=== PATIENT | female | born 1990 | race Caucasian/White ===

== ENCOUNTER 2018-08-12 23:03 | Emergency (ER) | payer BC, OTHER ==
[~2018-08-12] VITALS: Ht 165.1 cm; Wt 111.0 kg
[2018-08-12 23:57] LABS: CULTURE INDICATED? YES; MICROSCOPIC INDICATED
[2018-08-13] LABS: BASOPHILS # (AUTO) 0.03 x10^3/uL (0-0.1); BASOPHILS % (AUTO) 0 % (0-1); EOSINOPHILS # (AUTO) 0.06 x10^3/uL (0-0.4); EOSINOPHILS % (AUTO) 1 % (1-7); LYMPHOCYTES # (AUTO) 2.64 x10^3/uL (1-3.4); LYMPHOCYTES % (AUTO) 24 % (22-44); MD NO; MEAN CORPUSCULAR HEMOGLOBIN 31.5 pg (27.0-34.8); MEAN CORPUSCULAR HGB CONC 34.2 g/dL (32.4-35.8); MEAN CORPUSCULAR VOLUME 91.9 fL (80-100); MEAN PLATELET VOLUME 8.9 fL (7.4-10.4); MONOCYTES # (AUTO) 0.54 x10^3/uL (0.2-0.8); MONOCYTES % (AUTO) 5 % (2-9); NEUTROPHILS % (AUTO) 71 % (42-75); PLATELET COUNT 289 x10^3/uL (130-400); RED BLOOD COUNT 4.39 x10^6/uL (3.82-5.3)
[2018-08-13 00:13] LABS: ALBUMIN 3.6 g/dL (3.4-5.0); ANION GAP 8 mmol/L (5-15); CALCIUM 8.9 mg/dL (8.5-10.1); CHLORIDE 109 mmol/L (98-107)
--- NOTE | 2018-08-13 00:31 | NUR ---
UPDATED PT ON POC. PT CALLING HER BOYFRIEND AT THIS TIME.
--- NOTE | 2018-08-13 00:50 | NUR ---
PT TO US VIA [facility].
[2018-08-13 01:22] VITALS: BP 147/78
--- NOTE | 2018-08-13 02:05 | NUR ---
ERP WAS IN FOR RE-EVAL. D/C INSTRUCTIONS & F/U APPT RV'WD WITH PT, SHE VERBALIZES UNDERSTANDING. PT AMBULATED OUT OF ED WITHOUT DIFFICULTY, BOYFRIEND TO COME PICK HER UP.
== END 2018-08-13 02:07 | disposition home or self-care (01) ==
LOC: ED 08-13 00:40
DX: O20.0 Threatened abortion (principal); Z3A.01 Less than 8 weeks gestation of pregnancy
CPT/HCPCS: 36415; 76801; 80048; 81001; 82040; 84702; 84703; 85025; 87086; 99284

== ENCOUNTER 2020-05-21 12:52 | Emergency (ER) | payer OTHER ==
[~2020-05-21] VITALS: Ht 165.1 cm; Wt 99.6 kg
[2020-05-21 14:09] LABS: BASOPHILS % (AUTO) 0 % (0-1); EOSINOPHILS % (AUTO) 2 % (1-7); LYMPHOCYTES % (AUTO) 30 % (22-44); MEAN CORPUSCULAR HEMOGLOBIN 31.5 pg (27.0-34.8); MEAN CORPUSCULAR HGB CONC 34.5 g/dL (32.4-35.8); MEAN PLATELET VOLUME 9.1 fL (7.4-10.4); MONOCYTES % (AUTO) 7 % (2-9); NEUTROPHILS % (AUTO) 61 % (42-75); PLATELET COUNT 279 x10^3/uL (130-400); RED BLOOD COUNT 4.64 x10^6/uL (3.82-5.3); RED CELL DISTRIBUTION WIDTH 12.7 % (9.6-15.2)
[2020-05-21 14:10] LABS: MD NO
--- NOTE | 2020-05-21 14:14 | NUR ---
ON SITE SOIL EVALUATOR: PT AMBULATORY TO ROOM FROM LOBBY
--- NOTE | 2020-05-21 14:23 | NUR ---
"MY BF AND I HAVE HAD DIFFERENT SEX PARTNERS. WE WANT STD CHECKS. IM HAVING ABD PAIN AND A FOUL ODOR FROM MY VAGINA" UA COLLECTED IN TRIAGE
[2020-05-21 14:25] LABS: MICROSCOPIC INDICATED
--- NOTE | 2020-05-21 14:54 | NUR ---
ERP AT BEDSIDE FOR PELVIC EXAM-SWABS OBTAINED AND SENT TO LAB
--- NOTE | 2020-05-21 14:56 | NUR ---
REPORT TO ALTAF HERNADEZ
--- NOTE | 2020-05-21 14:59 | NUR ---
Report from MARICARMEN Bowen. Assumed care.
[2020-05-21] MEDS ORDERED: AZITHROMYCIN 500 MG TABLET PO ONE (15:00)
[2020-05-21] MEDS ORDERED: CEFTRIAXONE 250 MG IM ONE (15:00)
[2020-05-21] MEDS ORDERED: CEFTRIAXONE 250 MG ONE (15:18)
[2020-05-21 15:19] LABS: CLUE CELLS PRESENT (NONE SEEN); WET PREP WBCS MODERATE (FEW)
[2020-05-21] MEDS ORDERED: AZITHROMYCIN 250 MG TABLET ONE (15:19)
--- NOTE | 2020-05-21 15:31 | NUR ---
Rocephin and zithromax adminstered per eMAR
[2020-05-21 15:54] VITALS: BP 120/87
--- NOTE | 2020-05-21 16:22 | NUR ---
US at bedside
--- NOTE | 2020-05-21 16:26 | NUR ---
This RN chaperoning US.
[2020-05-22] MEDS ORDERED: METR500T PO (11:20)
== END 2020-05-21 17:05 | disposition home or self-care (01) ==
LOC: ED 14:44
DX: N76.0 Acute vaginitis (principal); R10.2 Pelvic and perineal pain; E66.01 Morbid (severe) obesity due to excess calories; Z68.36 Body mass index [BMI] 36.0-36.9, adult
CPT/HCPCS: 36415; 76830; 81001; 84703; 85025; 87086; 87210; 87491; 87591; 87808; 96372; 99284; J0696

== ENCOUNTER → 2020-05-22 | Outpatient (CLI) | payer OTHER ==
[~2020-05-22] MED LIST: METR500T PO
== END | disposition home or self-care (01) ==
LOC: STAR 10:43
PROVIDERS: ATTEND Obstetrics & Gynecology Female Pelvic Medicine and Reconstructive Surgery
DX: Z20.822 Contact with and (suspected) exposure to COVID-19 (principal); Z01.419 Encounter for gynecological examination (general) (routine) without abnormal findings
CPT/HCPCS: 87635

== ENCOUNTER 2020-12-20 15:50 | Outpatient (CLI) | payer MEDICAID ==
[2020-12-20 16:51] LABS: BASOPHILS % (AUTO) 0 % (0-1); EOSINOPHILS % (AUTO) 2 % (1-7); LYMPHOCYTES % (AUTO) 39 % (22-44); MEAN CORPUSCULAR HEMOGLOBIN 31.9 pg (27.0-34.8); MEAN CORPUSCULAR HGB CONC 34.4 g/dL (32.4-35.8); MEAN PLATELET VOLUME 8.6 fL (7.4-10.4); MONOCYTES % (AUTO) 7 % (2-9); NEUTROPHILS % (AUTO) 52 % (42-75); PLATELET COUNT 312 x10^3/uL (130-400); RED BLOOD COUNT 4.48 x10^6/uL (3.82-5.3); RED CELL DISTRIBUTION WIDTH 12.8 % (9.6-15.2)
[2020-12-20 16:59] LABS: ALANINE AMINOTRANSFERASE 25 U/L (12-78); ALBUMIN 3.6 g/dL (3.4-5.0); ANION GAP 7 mmol/L (5-15); CALCIUM 8.9 mg/dL (8.5-10.1); CHLORIDE 107 mmol/L (98-107); CREATININE 0.76 mg/dL (0.55-1.02)
[2020-12-20 17:00] LABS: INTERNATIONAL NORMALIZED RATIO 0.93 (0.93-1.1)
[2020-12-20 17:02] LABS: ALKALINE PHOSPHATASE 60 U/L (45-117); BILIRUBIN,TOTAL 0.5 mg/dL (0.2-1.0); TOTAL PROTEIN 7.6 g/dL (6.4-8.2)
== END 2020-12-20 23:59 | disposition home or self-care (01) ==
LOC: STAR 15:50
PROVIDERS: ATTEND Obstetrics & Gynecology
DX: Z01.812 Encounter for preprocedural laboratory examination (principal); Z20.822 Contact with and (suspected) exposure to COVID-19; N87.1 Moderate cervical dysplasia; R87.810 Cervical high risk human papillomavirus (HPV) DNA test positive
CPT/HCPCS: 36415; 80053; 85025; 85610; 85730; 87635

== ENCOUNTER 2020-12-24 11:55 | Observation (INO) | payer MEDICAID ==
[~2020-12-24] VITALS: Ht 165.1 cm; Wt 96.2 kg
[2020-12-24] MEDS ORDERED: CHLORHEXIDINE 15 ML UDC ONE (12:29)
[2020-12-24] MEDS ORDERED: LACTATED RINGERS 1,000 ML IV SCH (12:30)
[2020-12-24] MEDS ORDERED: CHLORHEXIDINE 15 ML UDC PO ONE (12:30)
[2020-12-24] MEDS ORDERED: CEFOTETAN PMX 2GM/50ML 50 ML IVPB ONE (12:30)
[2020-12-24 12:37] LABS: HCG UR SG 1.013 (1.003-1.030)
[2020-12-24] MEDS ORDERED: EPINEPHRINE 1 MG/ML, 1ML ONE (14:28)
[2020-12-24] MEDS ORDERED: HEPARIN 1,000 UNITS/ML, 10ML ONE (14:28)
[2020-12-24] MEDS ORDERED: BUPIVACAINE/PF 0.25% ONE (14:28)
[2020-12-24] MEDS ORDERED: FENTANYL PF 250 MCG/5ML ONE ×2 (14:44→15:38)
[2020-12-24] MEDS ORDERED: MIDAZOLAM 1 MG/ML, 2ML ONE (14:44)
[2020-12-24] MEDS ORDERED: LABETALOL 5MG/ML, 20ML IV PRN (16:00)
[2020-12-24] MEDS ORDERED: LORazepam 2 MG/ML, 1ML IVPush PRN (16:00)
[2020-12-24] MEDS ORDERED: OXYcodone 5 MG/5 ML ORAL.SOL UDC PO PRN (16:00)
[2020-12-24] MEDS ORDERED: ACETAMINOPHEN 325 MG TABLET PO PRN (16:00)
[2020-12-24] MEDS ORDERED: PROMETHAZINE 25 MG SUPP PR PRN (16:00)
[2020-12-24] MEDS ORDERED: HALOPERIDOL 5 MG/ML IV PRN (16:00)
[2020-12-24] MEDS ORDERED: HYDROmorphone 1 MG/ML, 1ML INJ IVPush PRN (16:00)
[2020-12-24] MEDS ORDERED: ONDANSETRON 2MG/ML, 2ML IVPush PRN ×2 (16:00→22:00)
[2020-12-24] MEDS ORDERED: MEPERIDINE/PF 25MG/0.5ML IVPush PRN (16:00)
[2020-12-24] MEDS ORDERED: hydrALAzine 20 MG/ML, 1ML IV PRN (16:00)
[2020-12-24] MEDS ORDERED: FENTANYL PF 100 MCG/2ML IV PRN (16:00)
[2020-12-24] MEDS ORDERED: PROMETHAZINE 25 MG/ML, 1ML IVPush PRN (16:00)
[2020-12-24] MEDS ORDERED: METHOCARBAMOL 1,000 MG in DEXTROSE 5% 100 ML IV PRN (16:00)
[2020-12-24] MEDS ORDERED: CEFAZOLIN 1,000 MG ONE (16:57)
[2020-12-24] MEDS ORDERED: DEXAMETHASONE 4 MG/ML, 1ML ONE (16:57)
[2020-12-24] MEDS ORDERED: SUCCINYLCHOLINE 20 MG/ML, 10ML ONE (16:57)
[2020-12-24] MEDS ORDERED: ROCURONIUM 10MG/ML,5ML ONE (16:57)
[2020-12-24] MEDS ORDERED: NEOSTIGMINE 1 MG/ML, 10ML ONE (16:57)
[2020-12-24] MEDS ORDERED: GLYCOPYRROLATE 0.2MG/1ML, 5ML ONE (16:57)
[2020-12-24] MEDS ORDERED: PROPOFOL 10 MG/ML, 20ML ONE (16:57)
[2020-12-24] MEDS ORDERED: ONDANSETRON 2MG/ML, 2ML ONE (16:57)
[2020-12-24] MEDS ORDERED: MEPERIDINE/PF 25MG/ML,1ML ONE (17:29)
[2020-12-24] MEDS ORDERED: OXYcodone 5 MG/5 ML ORAL.SOL UDC ONE (17:37)
[2020-12-24] MEDS ORDERED: FENTANYL PF 100 MCG/2ML ONE (17:59)
[2020-12-24] MEDS ORDERED: KETOROLAC 30 MG/1 ML IVPush PRN (22:00)
[2020-12-24] MEDS ORDERED: morphine SULFATE 10 MG/ML, 1ML IVPush PRN (22:00)
[2020-12-24] MEDS ORDERED: KETOROLAC 30 MG/1 ML ONE (22:29)
[2020-12-24] MEDS: LACTATED RINGERS 1,000 ML IV SCH (22:32)
[2020-12-25] MEDS: OXYcodone/APAP 5/325MG TABLET PO PRN ×2 (02:16→12:59)
[2020-12-25] MEDS: LACTATED RINGERS 1,000 ML IV SCH (06:00)
[2020-12-25 06:08] VITALS: BP 103/69
[2020-12-25 08:07] VITALS: BP 115/75
[2020-12-25 12:57] VITALS: BP 102/64
== END 2020-12-25 13:30 | disposition home or self-care (01) ==
LOC: OUT 11:55 → ORIP 22:14 → 4NE 22:24
PROVIDERS: ADMIT Obstetrics & Gynecology; ATTEND Obstetrics & Gynecology
DX: D06.9 Carcinoma in situ of cervix, unspecified (principal); G89.18 Other acute postprocedural pain; R09.02 Hypoxemia; F41.9 Anxiety disorder, unspecified; F17.200 Nicotine dependence, unspecified, uncomplicated; Z79.899 Other long term (current) drug therapy; Z90.710 Acquired absence of both cervix and uterus
CPT/HCPCS: 36415; 58571; 58920; 81025; 86850; 86900; 86923; 88307; G0378; J0171; J1100; J1885; J2175; J2250; J2405; J2704; J2710; J3010; J7120; S2900; J0690; J1644; J0330